=== PATIENT | female | born 1980 | race Caucasian/White ===

== ENCOUNTER 2016-09-28 07:58 | Emergency (ER) | payer BC, OTHER ==
[2016-09-28 08:53] VITALS: BMI 25.0
[2016-09-28] MEDS ORDERED: OXYCODONE HCL 5 MG TABLET PO ONE (09:13)
[2016-09-28] MEDS ORDERED: ONDANSETRON HCL 4 MG ODT TAB PO ONE (09:13)
--- NOTE | 2016-09-28 09:27 | EDPRACDOC ---
<Remington Levy - Last Filed: 09/28/16 11:18> - History of Present Illness Onset: 45 min HPI: C/o rt wrist pain and back pain after slipping on ice and filling onto back and right wrist. Denies head injury, LOC, neuro deficits, and was able to ambulate after fall. Pain Severity: Reports: Moderate Injuries/Pain Location: Reports: upper extremity (right wrist), back Reason for Fall: Reports: slipped Loss of Consciousness: no loss of consciousness Modifying Factors: improves with: movement (worse) Associated Symptoms (Fall): Reports: denies symptoms <Stanford Lowery - Last Filed: 09/30/16 04:32> - General Chief Complaint: Wrist Pain Stated Complaint: FALL Time Seen by Provider: 09/28/16 09:13 - History of Present Illness Allergies/Adverse Reactions: Allergies tramadol Allergy (Unknown, Verified 09/28/16 08:50) Nausea/Vomiting Home Medications: Ambulatory Orders Oxycodone HCl [Roxicodone] 5 - 10 mg PO Q4 PRN #20 tablet 09/28/16 ED Past Medical History - History Reviewed Yes Nurses notes reviewed and agree except as marked - Patient Medical History Systemic History: Reports: Cancer (cervical) Surgical History: Reports: Hysterectomy, Tonsillectomy/Adnoidectomy - Social Medical History Smoking Status: Heavy tobacco smoker (5 or more cigarettes/day or daily pipe/ cigar) <Stanford Lowery - Last Filed: 09/30/16 04:32> EDM Review of Systems - Review of Systems ROS Negative Except as Marked: Yes All systems reviewed and were negative except as marked Musculoskeletal: Back (mid), Wrist (right) <Stanford Lowery - Last Filed: 09/30/16 04:32> - Physical Exam Last recorded Vital Signs: Last Vital Signs Temp 98.6 F 09/28/16 08:50 Pulse 76 09/28/16 11:06 Resp 18 09/28/16 10:33 BP 124/68 09/28/16 11:06 Pulse Ox 96 09/28/16 11:06 Oxygen Pulse Oxygen Saturation 96 O2 Device Oxygen Flow Rate Fraction of Inspired Oxygen ( FIO2) <Remington Levy - Last Filed: 09/28/16 11:18> - Physical Exam Constitutional: No apparent distress, Alert Oriented to: Time, Person, Place Last recorded Vital Signs: Last Vital Signs Temp 98.6 F 09/28/16 08:50 Pulse 88 09/28/16 08:50 Resp 24 09/28/16 08:50 BP 155/92 09/28/16 08:50 Pulse Ox 99 09/28/16 08:50 Oxygen Pulse Oxygen Saturation 99 O2 Device Oxygen Flow Rate Fraction of Inspired Oxygen ( FIO2) - HEENT Head: Normal Eye Exam: Normal TMJ: Normal Nose: No Symptoms Reported Neck: Normal - Respiratory/Cardiovascular Respiratory: Normal - CTA Cardiovascular: Normal - GI Tenderness: Non tender - Musculoskeletal Back: Thoracic TTP, Lumbar TTP Extremities: Other (swelling and deformity to right wrist) - Integumentary Skin: Normal - Neurologic Mood Description: Normal Thought: Coherent Perception: Normal <Stanford Lowery - Last Filed: 09/30/16 04:32> ED Injury/Fall Exam - Physical Exam Head Injury: no evidence of injury Extremity Exam: other (swelling and tenderness right wrist) Skin: Normal - Parth Coma Score Best Eye Response (Parth): (4) open spontaneously Best Verbal Response ([place]): (5) oriented Best Motor Response ([place]): (6) obeys commands Parth Total: 15 <Stanford Lowery - Last Filed: 09/30/16 04:32> ED Procedures - Splinting 1st splint Hand-Made Type: orthoglass Splint: sugar-tong Pre-Proc Neuro Vasc Exam: normal Post-Proc Neuro Vasc Exam: normal Other Devices: Sling <Stanford Lowery - Last Filed: 09/30/16 04:32> - Diagnostic Imaging Wrist Image interpreted by: Radiologist EXAM: RIGHT WRIST - COMPLETE 3+ VIEW COMPARISON: None. FINDINGS: There is impaction fracture of the distal radius. The fracture parallels the articular surface but does not appear to enter the articular surface. Minimal angulation. The radiocarpal joint is intact. There is avulsion fracture of ulnar styloid IMPRESSION: 1. Impaction fracture of the distal radius. 2. Avulsion of the ulnar styloid. Electronically Signed By: Derick Stark M.D. On: 09/28/2016 09:37 L-Spine Image interpreted by: Radiologist EXAM: LUMBAR SPINE - COMPLETE 4+ VIEW COMPARISON: Lumbar spine MRI 09/19/2014 FINDINGS: Normal anatomic alignment. No evidence for acute fracture or dislocation. Preservation of the vertebral body and intervertebral disc space heights. SI joints are unremarkable. Calcification on the oblique and lateral views projecting at the level of the mid abdomen is nonspecific however may represent renal stone, gallstone or ingested material. IMPRESSION: No acute osseous abnormality. Calcification on the oblique and lateral views projecting at the level of the mid abdomen is nonspecific however may represent renal stone, gallstone or ingested material. Electronically Signed By: Bret Story M.D. On: 09/28/2016 10:38 T-Spine Image interpreted by: Radiologist EXAM: THORACIC SPINE 2 VIEWS COMPARISON: Lumbar MRI 09/19/2014. FINDINGS: Normal thoracic segmentation. Osteopenia for age. There is a mild superior endplate deformity with cortical irregularity at what appears to be either the T7 or T8 level (lateral view arrow). Otherwise preserved thoracic vertebral height. There is dextro convex lower thoracic scoliosis. Posterior ribs appear intact. Other mediastinal contours are within normal limits. Visualized thoracic visceral contours are grossly normal. L1 level appears intact. IMPRESSION: Osteopenia. Mild compression fracture at either the T7 or T8 level suspected to be acute in this setting. If specific therapy such as vertebroplasty is desired, thoracic MRI without contrast or whole-body bone scan would best confirm acuity. Electronically Signed By: Macario Kovacs M.D. On: 09/28/2016 10:36 <Stanford Lowery - Last Filed: 09/30/16 04:32> <Remington Levy - Last Filed: 09/28/16 11:18> Decision Time to Discharge: 10:54 - Departure Disposition: Home Education/Counseling Given To: Patient Education/Counseling Given Regarding: Diagnosis, Treatment, Prognosis, Follow Up <Stanford Lowery - Last Filed: 09/30/16 04:32> - Departure Condition: Stable Final Diagnosis: splint by Sebastián ulnar avulsion Radial head fracture, closed Qualifiers: Encounter type: initial encounter Fracture alignment: nondisplaced Laterality: right Qualified Code(s): S52.124A - Nondisplaced fracture of head of right radius, initial encounter for closed fracture Compression fx, thoracic spine Qualifiers: Encounter type: initial encounter Fracture type: closed Qualified Code(s): S22.000A - Wedge compression fracture of unspecified thoracic vertebra, initial encounter for closed fracture Instructions: Oxycodone/Acetaminophen (By mouth), Wrist Fracture in Adults (ED) , Vertebral Compression Fracture (ED) Referrals: Parrish Lopez MD [Staff Physician] - One Week Prescriptions: New Oxycodone HCl [Roxicodone] 5 - 10 mg PO Q4 PRN #20 tablet PRN Reason: Pain Forms: Excuse Note Additional Instructions: Follow up with orthopedics Dr Lopez. Call him thursday for follow up Thursday for wrist fracture and mild compression fracture of thoracic spine. Return to ED for any new or worsening symptoms.
--- NOTE | 2016-09-28 09:40 | DIRPT ---
CLINICAL DATA: Wrist pain after fall. EXAM: RIGHT WRIST - COMPLETE 3+ VIEW COMPARISON: None. FINDINGS: There is impaction fracture of the distal radius. The fracture parallels the articular surface but does not appear to enter the articular surface. Minimal angulation. The radiocarpal joint is intact. There is avulsion fracture of ulnar styloid IMPRESSION: 1. Impaction fracture of the distal radius. 2. Avulsion of the ulnar styloid. Electronically Signed By: Derick Stark M.D. On: 09/28/2016 09:37
[2016-09-28] MEDS ORDERED: HYDROmorphone 1 MG INJECTION IM ONE (09:58)
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
--- NOTE | 2016-09-28 10:40 | DIRPT ---
CLINICAL DATA: Patient status post fall down the stairs. Lower back pain. Initial encounter. EXAM: LUMBAR SPINE - COMPLETE 4+ VIEW COMPARISON: Lumbar spine MRI 09/19/2014 FINDINGS: Normal anatomic alignment. No evidence for acute fracture or dislocation. Preservation of the vertebral body and intervertebral disc space heights. SI joints are unremarkable. Calcification on the oblique and lateral views projecting at the level of the mid abdomen is nonspecific however may represent renal stone, gallstone or ingested material. IMPRESSION: No acute osseous abnormality. Calcification on the oblique and lateral views projecting at the level of the mid abdomen is nonspecific however may represent renal stone, gallstone or ingested material. Electronically Signed By: Bret Story M.D. On: 09/28/2016 10:38
[2016-09-28 11:46] VITALS: PULSE 88; TEMP 98.9
[2016-09-28 11:50] VITALS: BP 150/79
== END 2016-09-28 11:25 | disposition home or self-care (01) ==
LOC: ED 07:58
DX: S52.124A Nondisplaced fracture of head of right radius, initial encounter for closed fracture (principal); W00.0XXA Fall on same level due to ice and snow, initial encounter; Y93.9 Activity, unspecified; S22.000A Wedge compression fracture of unspecified thoracic vertebra, initial encounter for closed fracture
CPT/HCPCS: 29125; 72070; 72110; 73110; 96372; 99284; J1170; J3490